=== PATIENT | male | born 2000 | race Caucasian/White ===

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

== ENCOUNTER 2018-01-23 12:02 | Emergency (ER) | payer OTHER ==
[~2018-01-23] VITALS: Ht 170.2 cm; Wt 66.7 kg
[2018-01-23 12:11] VITALS: Ht 170.2 cm; Wt 66.7 kg
[2018-01-23 13:07] LABS: CALCIUM 9.2 mg/dL (8.5-10.1); CHLORIDE SERUM 110 mmol/L (98-107); CREATININE SERUM 1.3 mg/dL (0.7-1.3); GFR1 > 60 mL/min; GLUCOSE SERUM 109 mg/dL (74-106); POTASSIUM SERUM 3.7 mmol/L (3.5-5.1); SODIUM SERUM 146 mmol/L (136-145)
[2018-01-23 13:12] LABS: BASOPHIL % 0.5 % (0-2); PLATELET COUNT 233 x10^3mcL (130-400); RED CELL DISTRIBUTION WIDTH 13.1 % (11.5-14.5)
[2018-01-23 13:13] LABS: ALBUMIN 4.4 g/dL (3.4-5.0); ALKALINE PHOSPHATASE 86 U/L (46-116); ALT/SGPT 32 U/L (16-63); AST/SGOT 21 U/L (15-37); BILIRUBIN TOTAL 2.7 mg/dL (0.20-1.00); TOTAL PROTEIN, SERUM 7.7 g/dL (6.4-8.2)
[2018-01-23 14:00] VITALS: BP 110/59
== END 2018-01-23 14:00 | disposition home or self-care (01) ==
LOC: ED 12:02
PROVIDERS: Emergency Medicine
DX: R06.4 Hyperventilation (principal); E87.1 Hypo-osmolality and hyponatremia; R07.89 Other chest pain; R20.2 Paresthesia of skin
CPT/HCPCS: 83880; J7030

== ENCOUNTER 2018-04-14 11:24 | Emergency (ER) | payer OTHER ==
[~2018-04-14] VITALS: Ht 170.2 cm; Wt 73.5 kg
[2018-04-14 11:30] VITALS: BP 124/80; Ht 170.2 cm; Wt 73.5 kg
[2018-04-14 13:08] LABS: BASOPHIL % 0.5 % (0-2); PLATELET COUNT 295 x10^3mcL (130-400); RED CELL DISTRIBUTION WIDTH 12.6 % (11.5-14.5)
[2018-04-14 13:17] LABS: CALCIUM 9.6 mg/dL (8.5-10.1); CARBON DIOXIDE 29.8 mmol/L (21-32); CHLORIDE SERUM 104 mmol/L (98-107); CREATININE SERUM 1.1 mg/dL (0.7-1.3); GFR1 > 60 mL/min; GLUCOSE SERUM 97 mg/dL (74-106); POTASSIUM SERUM 3.9 mmol/L (3.5-5.1); SODIUM SERUM 141 mmol/L (136-145)
[2018-04-14 13:21] LABS: ALBUMIN 4.2 g/dL (3.4-5.0); ALKALINE PHOSPHATASE 74 U/L (46-116); ALT/SGPT 28 U/L (16-63); AST/SGOT 20 U/L (15-37); BILIRUBIN TOTAL 0.9 mg/dL (0.20-1.00); LIPASE 1316 IU/L (73-393)
[2018-04-14 13:24] LABS: TOTAL PROTEIN, SERUM 8.3 g/dL (6.4-8.2)
== END 2018-04-14 14:05 | disposition left against medical advice (07) ==
LOC: ED 11:24
PROVIDERS: Emergency Medicine
DX: K85.90 Acute pancreatitis without necrosis or infection, unspecified (principal)
CPT/HCPCS: 36415

== ENCOUNTER 2018-07-23 11:48 | Emergency (ER) | payer OTHER ==
[~2018-07-23] VITALS: Ht 170.2 cm; Wt 67.6 kg
[2018-07-23 12:12] VITALS: BP 132/62; Ht 170.2 cm; Wt 67.6 kg
== END 2018-07-23 14:08 | disposition home or self-care (01) ==
LOC: ED 11:48
DX: S46.212A Strain of muscle, fascia and tendon of other parts of biceps, left arm, initial encounter (principal); X58.XXXA Exposure to other specified factors, initial encounter; Y93.89 Activity, other specified; Y92.89 Other specified places as the place of occurrence of the external cause; Y99.8 Other external cause status

== ENCOUNTER 2019-02-05 06:12 | Emergency (ER) | payer OTHER ==
[~2019-02-05] VITALS: Ht 170.2 cm; Wt 72.6 kg
[2019-02-05 06:57] VITALS: BP 108/50
== END 2019-02-05 07:09 | disposition home or self-care (01) ==
LOC: ED 06:12
DX: K29.70 Gastritis, unspecified, without bleeding (principal); M54.6 Pain in thoracic spine